=== PATIENT | male | born 1970 | race Caucasian/White ===

== ENCOUNTER 2019-04-21 05:18 | Day surgery (SDC) | payer OTHER ==
[2019-04-20 10:16] LABS: ALANINE AMINOTRANSFERASE 37 U/L (12-78); ALBUMIN 3.8 g/dL (3.4-5.0); ANION GAP 4 mmol/L (5-15); CALCIUM 9.1 mg/dL (8.5-10.1); CHLORIDE 105 mmol/L (98-107); CREATININE 0.88 mg/dL (0.55-1.02)
[2019-04-20 10:18] LABS: ALKALINE PHOSPHATASE 66 U/L (45-117); BILIRUBIN,TOTAL 0.7 mg/dL (0.2-1.0); TOTAL PROTEIN 7.5 g/dL (6.4-8.2)
[~2019-04-21] VITALS: Ht 198.1 cm; Wt 181.4 kg
[~2019-04-21 05:18] MED LIST: D3 PO; LISI-170 PO; LISI1TAB19 PO; MULT-658 PO; fish oil PO
[2019-04-21 06:10] VITALS: BP 128/83
[2019-04-21] MEDS ORDERED: LACTATED RINGERS 1,000 ML IV SCH (06:13)
[2019-04-21] MEDS ORDERED: LIDOCAINE 1%, 20ML ONE (06:20)
[2019-04-21] MEDS ORDERED: BUPIVACAINE/PF 0.5% ONE (06:20)
[2019-04-21] MEDS ORDERED: FENTANYL PF 250 MCG/5ML ONE (06:48)
[2019-04-21] MEDS ORDERED: MIDAZOLAM 1 MG/ML, 2ML ONE (06:48)
[2019-04-21] MEDS ORDERED: ONDANSETRON 2MG/ML, 2ML ONE (07:00)
[2019-04-21] MEDS ORDERED: PROPOFOL 10 MG/ML, 20ML ONE (07:00)
[2019-04-21] MEDS ORDERED: ROCURONIUM 10MG/ML,5ML ONE (07:00)
[2019-04-21] MEDS ORDERED: CEFAZOLIN 1,000 MG ONE (07:00)
[2019-04-21] MEDS ORDERED: SUCCINYLCHOLINE 20 MG/ML, 10ML ONE (07:00)
[2019-04-21] MEDS ORDERED: hydrALAzine 20 MG/ML, 1ML IV PRN (07:30)
[2019-04-21] MEDS ORDERED: MEPERIDINE/PF 25MG/0.5ML IVPush PRN (07:30)
[2019-04-21] MEDS ORDERED: ONDANSETRON 2MG/ML, 2ML IVPush PRN (07:30)
[2019-04-21] MEDS ORDERED: FENTANYL PF 100 MCG/2ML IV PRN (07:30)
[2019-04-21] MEDS ORDERED: KETOROLAC 30 MG/1 ML IV PRN (07:30)
[2019-04-21] MEDS ORDERED: LABETALOL 5MG/ML, 20ML IV PRN (07:30)
[2019-04-21] MEDS ORDERED: OXYcodone 5 MG/5 ML ORAL.SOL UDC PO PRN (07:30)
[2019-04-21] MEDS ORDERED: HYDROmorphone 1 MG/ML, 1ML INJ IV PRN (07:30)
[2019-04-21] MEDS ORDERED: PROMETHAZINE 25 MG/ML, 1ML IV PRN (07:30)
[2019-04-21] MEDS ORDERED: METOCLOPRAMIDE 5 MG/ML, 2ML IV PRN (07:30)
[2019-04-21] MEDS ORDERED: ALBUTEROL SULFATE 2.5 MG/3 ML NPPB PRN (07:30)
== END 2019-04-21 09:15 | disposition home or self-care (01) ==
LOC: OUT 05:18 → EDSEX 05:18 → OUT 09:15
PROVIDERS: ATTEND Orthopaedic Surgery
DX: S92.412A Displaced fracture of proximal phalanx of left great toe, initial encounter for closed fracture (principal); E66.01 Morbid (severe) obesity due to excess calories; Z68.42 Body mass index [BMI] 45.0-49.9, adult; G47.33 Obstructive sleep apnea (adult) (pediatric); Z79.899 Other long term (current) drug therapy; X58.XXXA Exposure to other specified factors, initial encounter; Y93.89 Activity, other specified; Y92.89 Other specified places as the place of occurrence of the external cause; Y99.8 Other external cause status
CPT/HCPCS: 28505; 36415; 73660; 76000; 80053; 93005; C1713; J0330; J0690; J2250; J2405; J2704; J3010; J7120